=== PATIENT | female | born 1965 | race Caucasian/White ===

== ENCOUNTER 2024-03-19 07:27 | Day surgery (SDC) | payer BC ==
[2024-03-18 11:50] VITALS: BMI 29.8
[~2024-03-19 07:27] MED LIST: LIDOCAINE 1% (10MG/ML) FOR IV START INTRADERMA PRN
[2024-03-19] MEDS: LACTATED RINGERS 1,000 ML IV SCH (07:59)
[2024-03-19 08:22] VITALS: RESP 18; TEMP 97
[2024-03-19] MEDS ORDERED: PROPOFOL 10 MG/ML 20 ML VIAL IV ONE (08:30)
[2024-03-19] MEDS ORDERED: GLYCOPYRROLATE 0.2 MG/ML 2 ML VIAL ONE (08:30)
--- NOTE | 2024-03-19 08:32 | P.GSHP ---
History of Present Illness H&P Date: 03/19/24 Chief Complaint: GI bleed this is a 58-year-old female presents today for colonoscopy. Patient is issues with rectal bleeding. Past Medical History Past Medical History: Hypertension Additional Past Medical History / Comment(s): Having dark stools for 2 weeks History of Any Multi-Drug Resistant Organisms: None Reported Past Surgical History: No Surgical Hx Reported Additional Past Anesthesia/Blood Transfusion Reaction / Comment(s): Has never had anesthesia Smoking Status: Never smoker - Past Family History Mother Family Medical History: No Reported History Brother(s) Family Medical History: Cancer Medications and Allergies Home Medications Medication Instructions Recorded Confirmed Type Ferrous Sulfate [Iron] 325 mg PO DAILY 03/18/24 03/19/24 History Magnesium 200 mg PO HS 03/18/24 03/19/24 History Multivitamins, Thera [Multivitamin 1 tab PO HS 03/18/24 03/19/24 History (formulary)] Pantoprazole [Protonix] 40 mg PO HS 03/18/24 03/19/24 History lisinopriL [Prinivil] 10 mg PO HS 03/18/24 03/19/24 History Allergies Allergy/AdvReac Type Severity Reaction Status Date / Time No Known Allergies Allergy Verified 03/19/24 07:56 Surgical - Exam Vital Signs Temp Pulse Resp BP Pulse Ox 97.0 F L 68 18 188/99 100 03/19/24 07:54 03/19/24 07:54 03/19/24 07:54 03/19/24 07:54 03/19/24 07:54 - General well developed, well nourished, no distress - Eyes PERRL - ENT normal pinna - Neck no masses - Respiratory normal expansion - Cardiovascular Rhythm: regular - Abdomen Abdomen: soft, non tender Assessment and Plan Assessment: GI bleed. We'll perform colonoscopy.
--- NOTE | 2024-03-19 08:51 | P.OP ---
Date of Procedure: 03/19/24 Preoperative Diagnosis: GI bleed Postoperative Diagnosis: GI bleed Procedure(s) Performed: colonoscopy Anesthesia: MAC Surgeon: Navdeep Agrawal Pathology: none sent Condition: stable Disposition: PACU Description of Procedure: the patient's placed on the endoscopy table in the lateral position. He receiv ed IV sedation. Digital rectal exam was performed. This revealed a few internal and external hemorrhoids. The colonoscope was then placed anus and passed throughout the entire colon. The ileocecal valve was visualized. Cecum, ascending and transverse colon appeared normal. The descending and sigmoid colon had mild diverticular changes. Scope was then brought back the rectum and this appeared normal. Scope withdrawn the anus and internal and external hemorrhoids are noted. There is no evidence of any active ubleed. Presumed patient may have had bleeding from hemorrhoids or diverticulosis.
[2024-03-19 10:12] VITALS: BP 165/88; PULSE 81
== END 2024-03-19 09:34 | disposition home or self-care (01) ==
LOC: ORWHC2ENDO 07:27
PROVIDERS: ATTEND Surgery
DX: K92.2 Gastrointestinal hemorrhage, unspecified (principal); K64.8 Other hemorrhoids; I10 Essential (primary) hypertension; Z98.890 Other specified postprocedural states; Z79.899 Other long term (current) drug therapy
CPT/HCPCS: 45378; J2704

== ENCOUNTER 2025-05-13 07:46 | Day surgery (SDC) | payer BC ==
[2025-05-12 08:46] VITALS: BMI 30.5
[2025-05-13] MEDS: IV FLUID CONTINUATION 1,000 ML IV ONE ×2 (08:11→08:13)
[2025-05-13 08:22] VITALS: RESP 16; TEMP 97.6
[2025-05-13] MEDS: LACTATED RINGERS 1,000 ML IV SCH (08:27)
[2025-05-13] MEDS: MIDAZOLAM 2 MG/2 ML VIAL IV ONE (08:39)
[2025-05-13] MEDS: hydrALAZINE HCL 20 MG/ML 1 ML VIAL IVP STA (08:59)
[2025-05-13] MEDS ORDERED: LIDOCAINE 1% INJ 10MG/ML (20 ML MDV) ONE (10:25)
[2025-05-13] MEDS ORDERED: PROPOFOL 10 MG/ML 20 ML VIAL IV ONE (10:25)
--- NOTE | 2025-05-13 10:29 | P.GSHP ---
History of Present Illness H&P Date: 05/13/25 Chief Complaint: Gerd This is a 59-year-old female presents today for EGD. Patient has issues with GERD. Past Medical History Past Medical History: GERD/Reflux, Hypertension Additional Past Medical History / Comment(s): "Constant heart burn."Having dark stools for 2 weeks History of Any Multi-Drug Resistant Organisms: None Reported Past Surgical History: No Surgical Hx Reported Additional Past Surgical History / Comment(s): Colonoscopy Past Anesthesia/Blood Transfusion Reactions: No Reported Reaction Additional Past Anesthesia/Blood Transfusion Reaction / Comment(s): Has never had anesthesia Smoking Status: Never smoker - Past Family History Mother Family Medical History: No Reported History Brother(s) Family Medical History: Cancer Medications and Allergies Home Medications Medication Instructions Recorded Confirmed Type Pantoprazole [Protonix] 40 mg PO HS 03/18/24 05/13/25 History [id number] 1 each PO Q6HR PRN 03/25/24 05/13/25 History [Excedrin] Ibuprofen [Advil] 200 mg PO Q8HR PRN 03/25/24 05/13/25 History Losartan Potassium 50 mg PO QAM 05/12/25 05/13/25 History Allergies Allergy/AdvReac Type Severity Reaction Status Date / Time No Known Allergies Allergy Verified 05/13/25 08:18 Surgical - Exam Vital Signs Temp Pulse Resp BP Pulse Ox 97.6 F 67 16 176/107 99 05/13/25 08:20 05/13/25 08:20 05/13/25 08:20 05/13/25 08:20 05/13/25 08:20 - General well developed, well nourished, no distress - Eyes PERRL - ENT normal pinna - Neck no masses - Respiratory normal expansion - Cardiovascular Rhythm: regular - Abdomen Abdomen: soft, non tender Assessment and Plan Assessment: Gerd. Will perform EGD.
[2025-05-13 11:08] VITALS: BP 138/88; PULSE 87
--- NOTE | 2025-05-18 10:25 | P.OP ---
Date of Procedure: 05/13/25 Preoperative Diagnosis: Gerd Postoperative Diagnosis: Antral gastritis Hiatal hernia Esophagitis Procedure(s) Performed: EGD Anesthesia: MAC Surgeon: Navdeep Agrawal Pathology: other (Antrum, esophagus) Condition: stable Disposition: PACU Description of Procedure: The patient was placed on the endoscopy table in the lateral position. She received IV sedation. The Gastroflux oropharynx passed in the esophagus and the stomach. Scope was then placed through the pylorus. The 1st and 2nd portion of the duodenum appeared normal. Scope was then brought back to the antrum this appeared mildly inflamed. A biopsy was performed. The scope was then retroflexed the Mainer of the stomach appeared normal. The patient had a hiatal hernia. The GE junction was at 38 cm. The distal esophagus appeared mildly inflamed m. The proximal esophagus appeared normal. Scope withdrawn the patient.
== END 2025-05-13 12:43 | disposition home or self-care (01) ==
LOC: ORWHC2ENDO 07:46
PROVIDERS: ATTEND Surgery
DX: K29.50 Unspecified chronic gastritis without bleeding (principal); K21.00 Gastro-esophageal reflux disease with esophagitis, without bleeding; K44.9 Diaphragmatic hernia without obstruction or gangrene; I10 Essential (primary) hypertension; Z79.899 Other long term (current) drug therapy
CPT/HCPCS: 88305; 43239; J2250; J0360; J2003; J2704